=== PATIENT | male | born 1975 | race Caucasian/White ===

== ENCOUNTER 2020-03-31 10:50 | Emergency (ER) | payer OTHER ==
[~2020-03-31 10:50] MED LIST: DECADRON6 MG PO; ZITHROMAX250 MG PO
== END 2020-03-31 13:24 | disposition home or self-care (01) ==
LOC: ER1 10:50
DX: S06.9X9A Unspecified intracranial injury with loss of consciousness of unspecified duration, initial encounter (principal); T14.8XXA Other injury of unspecified body region, initial encounter; E11.9 Type 2 diabetes mellitus without complications; M54.2 Cervicalgia; M54.5 Low back pain; M54.6 Pain in thoracic spine; W20.8XXA Other cause of strike by thrown, projected or falling object, initial encounter; Y92.89 Other specified places as the place of occurrence of the external cause; Y99.0 Civilian activity done for income or pay
CPT/HCPCS: 70450; 72125; 72128; 72131; 99284

== ENCOUNTER → 2020-06-08 | Outpatient (CLI) | payer OTHER | LOC: EMI 08:51 | DX: M54.5 Low back pain (principal); M25.512 Pain in left shoulder; S43.432A Superior glenoid labrum lesion of left shoulder, initial encounter; S46.012A Strain of muscle(s) and tendon(s) of the rotator cuff of left shoulder, initial encounter; M19.012 Primary osteoarthritis, left shoulder; X58.XXXA Exposure to other specified factors, initial encounter | CPT/HCPCS: 72148; 73221 ==

== ENCOUNTER → 2021-06-17 | Outpatient (CLI) | payer BC | LOC: CT 12:48 | DX: R10.31 Right lower quadrant pain (principal); K57.30 Diverticulosis of large intestine without perforation or abscess without bleeding | CPT/HCPCS: Q9967 ==